=== PATIENT | female | born 1975 | race Caucasian/White ===

== ENCOUNTER → 2017-03-01 | Outpatient (CLI) | payer OTHER ==
[~2017-03-01] MED LIST: BARIUM SUSPENSION 105% (LIQUID POLIBAR PLUS) 240 ML/DOSE PO ONE; BARIUM SUSPENSION 60% (LIQUID EZ PAQUE) 240 ML DOSE PO ONE; PANT40TA2 PO; bcp PO
--- NOTE | 2017-03-01 11:09 | Diagnostic Imaging Report ---
EXAMINATION: Upper GI study, double contrast. TECHNIQUE: A csw image of the abdomen was performed. After the oral administration of gas forming granules, the patient drank thick and thin barium with visualization under fluoroscopy and spot images were taken over the esophagus, stomach, and duodenum followed by overhead images of the chest and abdomen. INDICATION: Reflux. FLUOROSCOPY TIME: 1 minute and 20 seconds. FINDINGS: [place] images of the abdomen demonstrate a moderate amount of fecal material. Surgical clips in the upper right abdomen are also seen. The esophagus demonstrates normal caliber with no strictures. The mucosal pattern demonstrates no filling defects, diverticulum, or ulceration. There is normal relaxation of the distal sphincter. There is no hiatal hernia. The stomach demonstrates normal distensibility with a normal appearance of the mucosal folds. There is a small contrast collection seen near the lesser curvature in the gastric antrum, only seen on one image. This is concerning for a small gastric ulcer. Endoscopic evaluation is recommended. The duodenal bulb and sweep appear normal. IMPRESSION: Question of a gastric ulcer or gastritis along the lesser curvature in the antrum. Endoscopic evaluation is recommended. Dr. Box was called and informed about the findings at the time of dictation. Dictated by: Dictated on workstation # [id number]
== END ==
LOC: RAD 08:58
PROVIDERS: ATTEND Surgery Pediatric Surgery
DX: K21.9 Gastro-esophageal reflux disease without esophagitis (principal)
CPT/HCPCS: 74241

== ENCOUNTER 2017-03-02 05:42 | Outpatient (CLI) | payer OTHER ==
[~2017-03-02] VITALS: Ht 162.6 cm; Wt 116.1 kg
[2017-03-02] MEDS ORDERED: bcp PO (11:47)
--- NOTE | 2017-03-05 21:56 | HISTORY AND PHYSICAL ---
DATE OF SERVICE: 03/07/2017 ATTENDING PRIMARY CARE PHYSICIAN: Dr. Dawn HISTORY OF PRESENT ILLNESS: The patient is a 41-year-old female who is in our surgical weight loss program for the laparoscopic gastric sleeve resection and does meet the medical criteria for bariatric surgery. She gained the majority of her weight in 1997 after having her second child. She has tried a number of diet and exercise attempts with no success. She also has tried pharmaceutical medications; however, due to the side effects of agitation, irrigation and palpitation, she had to discontinue the medication. Her medical comorbidities include diabetes, hypertension, lower extremity edema and gastroesophageal reflux disease. She has had worsening issues with gastroesophageal reflux disease, as well as epigastric pain, lately. She underwent a recent upper GI contrast study which did not show any hiatal hernia; however, there was a defect within the stomach that was consistent with a gastric ulcer. She has never had an EGD in the past. Upon further questioning, she does report that the epigastric crampy pain and burning sensation has worsened, especially in the past year. PAST MEDICAL HISTORY: Diabetes, hypertension, lower extremity edema, gastroesophageal reflux disease. PAST SURGERIES: Open bilateral urethropelvic junction repair, 1982; tonsillectomy and laparoscopic cholecystectomy, 2001. ALLERGIES: TETRACYCLINE, DOXYCYCLINE, ERYTHROMYCIN. MEDICATIONS: Oral contraceptive pill daily. SOCIAL HISTORY: Negative smoking, negative alcohol. FAMILY HISTORY: Father carcinoid tumor, mother diabetes, father hypertension and myocardial infarction at age 62. VITAL SIGNS: Stable, currently 256.6 pounds, 5 feet 4 inches, body mass index of 44.3. REVIEW OF SYSTEMS: This is a well-nourished female currently in no acute distress. She is not experiencing any shortness of breath or difficulty breathing, no chest pain, palpitations or diaphoresis, no nausea or vomiting with intermittent episodes of epigastric burning sensation, as well as crampy pain, as well as reflux type of symptoms, no hematemesis, no coffee-ground emesis, no diarrhea or constipation, no red blood per rectum, no dark or tarry stools, no fever or chills, no recent inadvertent weight loss. PHYSICAL EXAMINATION: CHEST: Clear. HEART: Regular. EXTREMITIES: No lower extremity edema, negative Homans' sign. HEENT: No scleral icterus. NECK: No cervical lymphadenopathy. ABDOMEN: Soft, nondistended with pain in the epigastric region on deep palpation, no peritoneal signs. ASSESSMENT AND PLAN: A 41-year-old female with a history of gastroesophageal reflux disease, as well as peptic ulcer disease. She has not had an EGD, as well as biopsy to rule out Helicobacter pylori in the past, and we will proceed with an EGD with biopsy. Job ID: [id number] DocumentID: [id number] Dictated Date: 03/05/2017 20:13:59 Refinisher Date: 03/05/2017 21:55:51 Dictated By: JANEEN ARGUELLO MD [facility]
== END 2017-03-02 11:53 ==
LOC: PREOP 05:42
PROVIDERS: ATTEND Surgery Pediatric Surgery
DX: Z01.818 Encounter for other preprocedural examination (principal); K21.9 Gastro-esophageal reflux disease without esophagitis

== ENCOUNTER 2017-03-07 10:57 | Day surgery (SDC) | payer OTHER ==
[~2017-03-07] VITALS: Ht 162.6 cm; Wt 116.1 kg
[~2017-03-07 10:57] MED LIST changes: -BARIUM SUSPENSION 105% (LIQUID POLIBAR PLUS) 240 ML/DOSE PO ONE; -BARIUM SUSPENSION 60% (LIQUID EZ PAQUE) 240 ML DOSE PO ONE; -PANT40TA2 PO
[2017-03-07] MEDS ORDERED: FLUMAZENIL (ROMAZICON) 0.1 MG/ML 5 ML VIAL INJ PRN (11:15)
[2017-03-07] MEDS ORDERED: LIDOCAINE JELLY 2% (XYLOCAINE) 5 ML TUBE MM PRN (11:15)
[2017-03-07] MEDS ORDERED: NALOXONE 0.4 MG/ML 1 ML (NARCAN) VIAL IVP PRN (11:15)
[2017-03-07] MEDS ORDERED: HURRICAINE EXT TUBE (BENZOCAINE) XX PRN (11:15)
[2017-03-07 11:25] VITALS: BP 144/86
[2017-03-07] MEDS ORDERED: NS IV 500 ML 500 ML IV PRN (11:30)
--- NOTE | 2017-03-07 11:37 | Conscious Sedation/ASA ---
Conscious Sedation Pre-Proced Time Reviewed: 11:30 ASA Class: 2 Airway Mallampati Classification: ([place] appropriate class) I. II. III, IV Lungs Heart ASA score ASA 1: a normal healthy patient ASA 2: a patient with a mild systemic disease (mid diabetes, controlled hypertension, obesity ASA 3: a patient with a severe systemic disease that limits activity (angina , COPD, prior Myocardial infarction) ASA 4: a patient with an incapacitating disease that is a constant threat to life (CHF, renal failure) ASA 5: a moribund patient not expected to survive 24 hrs. (ruptured aneurysm) ASA 6: a declared brain patient whose organs are being harvested. For emergent operations, add the letter E after the classification Grade 3 Sedation Plan: Analgesia, Amnesia, Plan communicated to team members, Discussed options with patient/fam, Discussed risks with patient/fam Note The patient is an appropriate candidate to undergo the planned procedure, sedation, and anesthesia. The patient immediately re-assessed prior to indication. JANEEN ARGUELLO MD March 07, 2017 11:36 am
--- NOTE | 2017-03-07 11:37 | Progress Note-Pre Operative ---
Pre-Operative Progress Note H&P Reviewed The H&P was reviewed, patient examined and no changes noted. Date H&P Reviewed: March 07, 2017 Time H&P Reviewed: 11:30 Pre-Operative Diagnosis: GERD. JANEEN WALLACE MD March 07, 2017 11:37 am
[2017-03-07] MEDS ORDERED: HYDROcodone/APAP 5 MG/325 MG (LORTAB) TAB PO PRN (11:45)
[2017-03-07] MEDS ORDERED: ONDANSETRON 4 MG/2 ML (SDV) Z0FRAN IV PRN (11:45)
[2017-03-07] MEDS ORDERED: ACETAMINOPHEN 325 MG TABLET/CAPLET (TYLENOL) PO PRN (11:45)
[2017-03-07] MEDS ORDERED: morphine INJ 10 MG/ML 1ML (SYR OR VIAL) IV PRN (11:45)
[2017-03-07] MEDS ORDERED: MIDAZOLAM 2 MG/2 ML (VERSED) VIAL ONE ×4 (12:01→12:02)
[2017-03-07] MEDS ORDERED: HURRICAINE EXT TUBE (BENZOCAINE) ONE (12:02)
[2017-03-07] MEDS ORDERED: fentaNYL INJECTION 100 MCG/2 ML AMP ONE (12:02)
[2017-03-07] MEDS ORDERED: LIDOCAINE JELLY 2% (XYLOCAINE) 5 ML TUBE ONE (12:02)
[2017-03-07] MEDS: fentaNYL INJECTION 100 MCG/2 ML AMP IVP PRN ×2 (12:15→12:25)
[2017-03-07] MEDS: MIDAZOLAM 2 MG/2 ML (VERSED) VIAL IVP PRN ×4 (12:18→12:35)
--- NOTE | 2017-03-07 12:52 | Progress Note-Post Operative ---
Post-Operative Progess Note Surgeon (s)/Brand Ambassador Promotional Model (s) Surgeon JANEEN ARGUELLO MD [employer] Ambassador Promotional Model: none Pre-Operative Diagnosis GERD. PUD Post-Operative Diagnosis reflux esophagitis(class B), small HH(<1cm), moderate diffuse gastritis. Procedure & Operative Findings Date of Procedure 03/07/17 Procedure Preformed/Findings EGD with bx. Anesthesia Type CS Estimated Blood Loss Estimated blood loss (mL): minimal Specimens/Packing Specimens Removed GE jxn, antrum Packing: none JANEEN ARGUELLO MD March 07, 2017 12:52
[2017-03-07] MEDS ORDERED: PANT40TA2 PO (12:53)
--- NOTE | 2017-03-07 12:53 | Discharge Inst-Surgical ---
D/C Lap Instructions-KIDO New, Converted, or Re-Newed RX: RX on Chart Follow Up PRN Activity as tolerated High Fiber Diet 25g or more per day Avoid Alcohol, Caffeine, Spicy [place] and Acid foods. Drink 64 fluid oz or more of fluids per day. Symptoms to Report: Fever over 101 degree F, Nausea/Vomiting If any problems/questions: Contact your physician or go to Emergency Room JANEEN ARGUELLO MD March 07, 2017 12:53
[2017-03-07 13:00] VITALS: BP 136/82
--- NOTE | 2017-03-07 13:17 | OPERATIVE REPORT ---
DATE OF SERVICE: 03/07/2017 PRIMARY CARE PHYSICIAN: Dr. Dalton Dawn. PREOPERATIVE DIAGNOSIS: Peptic ulcer disease and gastroesophageal reflux disease. POSTOPERATIVE DIAGNOSES: 1. Reflux esophagitis class B. 2. Small hiatal hernia, less than 1 cm in size with moderate severity gastritis. 3. There were no formal ulcers, polyps, or any neoplasms. PROCEDURE: Esophagogastroduodenoscopy with biopsy. SURGEON: Dr. Arguello. ANESTHESIA: Conscious sedation. ESTIMATED BLOOD LOSS: Minimal. FINDINGS: Reflux esophagitis class B, small hiatal hernia, less than 1 cm in size. There was a moderate severity gastritis which was diffuse. There were no formal ulcers identified within the stomach or duodenum. There were no distal obstructions. DISPOSITION: The patient tolerated the procedure well. INDICATIONS: The patient is a 41-year-old female who is in our surgical weight loss program for the laparoscopic gastric sleeve resection and meets the medical criteria for bariatric surgery. She gained the majority of her adult weight in 1997 after having her second child. She has tried a number of diet and exercise attempts with no success. She has tried pharmaceutical medications as well; however, due to the side effects of agitation, irritation and palpitations she discontinued the medication. Her medical comorbidities related to her obesity include hypertension, lower extremity edema and gastroesophageal reflux disease. She had worsening issues with epigastric burning sensation as well as crampy pain. She did undergo an upper GI contrast study, which did not show a hiatal hernia; however, there was a filling defect within the stomach consistent with a gastric ulcer. She has not had an EGD done in the past. DESCRIPTION OF PROCEDURE: The patient was brought to the endoscopy suite, laid in the left lateral decubitus position with the head slightly elevated. After adequate IV pain and sedating medications and conscious sedation anesthesia, the mouthpiece was applied. The endoscope was then placed into the mouth visualizing the pharynx and hypopharyngeal region. The vocal cords, epiglottis and vallecula identified and appeared to be normal. The endoscope was then gently intubated into the esophageal opening and esophagus insufflated. The endoscope was then advanced through the first, second and third portions of the esophagus. At the level of the GE junction, a reflux esophagitis class B identified. There were no ulcers or strictures identified in this region. A biopsy was taken with forceps with visualization of good hemostasis. The endoscope was then easily advanced into the stomach and then endoscope retroflexed, visualizing a very small hiatal hernia, less than 1 cm in size. There was a moderate severity gastritis which was diffuse throughout the stomach and antrum. There were no formal ulcers, polyps, or any neoplasms identified. A biopsy was taken of the stomach antrum with visualization of good hemostasis. The endoscope was then advanced to the pylorus and the first and second portions of the duodenum, which appeared normal with no distal obstructions or any ulcerations. The endoscope was then slowly withdrawn taking a second look and suctioning of residual air with no additional findings. The patient tolerated the procedure well. We will await the biopsy results for potential H. pylori; however, we will also start her on Protonix 40 mg daily. We will also recommend the necessary lifestyle and diet accommodation including small and more frequent meals, avoidance of eating at night as well as head elevation while laying supine. She also needs to avoid caffeinated beverages, spicy, greasy and acidic foods. Job ID: [id number] DocumentID: [id number] Dictated Date: 03/07/2017 12:50:24 Manager Medicare Date: 03/07/2017 13:16:50 Dictated By: JANEEN ARGUELLO MD
[2017-03-07 13:30] VITALS: BP 138/76
[2017-03-07 13:43] VITALS: BP 138/76
--- NOTE | 2017-03-13 08:14 | HISTORY AND PHYSICAL ---
DATE OF SERVICE: 03/07/2017 ATTENDING PRIMARY CARE PHYSICIAN: Dr. Dawn HISTORY OF PRESENT ILLNESS: The patient is a 41-year-old female who is in our surgical weight loss program for the laparoscopic gastric sleeve resection and does meet the medical criteria for bariatric surgery. She gained the majority of her weight in 1997 after having her second child. She has tried a number of diet and exercise attempts with no success. She also has tried pharmaceutical medications; however, due to the side effects of agitation, irrigation and palpitation, she had to discontinue the medication. Her medical comorbidities include diabetes, hypertension, lower extremity edema and gastroesophageal reflux disease. She has had worsening issues with gastroesophageal reflux disease, as well as epigastric pain, lately. She underwent a recent upper GI contrast study which did not show any hiatal hernia; however, there was a defect within the stomach that was consistent with a gastric ulcer. She has never had an EGD in the past. Upon further questioning, she does report that the epigastric crampy pain and burning sensation has worsened, especially in the past year. PAST MEDICAL HISTORY: Diabetes, hypertension, lower extremity edema, gastroesophageal reflux disease. PAST SURGERIES: Open bilateral urethropelvic junction repair, 1982; tonsillectomy and laparoscopic cholecystectomy, 2001. ALLERGIES: TETRACYCLINE, DOXYCYCLINE, ERYTHROMYCIN. MEDICATIONS: Oral contraceptive pill daily. SOCIAL HISTORY: Negative smoking, negative alcohol. FAMILY HISTORY: Father carcinoid tumor, mother diabetes, father hypertension and myocardial infarction at age 62. VITAL SIGNS: Stable, currently 256.6 pounds, 5 feet 4 inches, body mass index of 44.3. REVIEW OF SYSTEMS: This is a well-nourished female currently in no acute distress. She is not experiencing any shortness of breath or difficulty breathing, no chest pain, palpitations or diaphoresis, no nausea or vomiting with intermittent episodes of epigastric burning sensation, as well as crampy pain, as well as reflux type of symptoms, no hematemesis, no coffee-ground emesis, no diarrhea or constipation, no red blood per rectum, no dark or tarry stools, no fever or chills, no recent inadvertent weight loss. PHYSICAL EXAMINATION: CHEST: Clear. HEART: Regular. EXTREMITIES: No lower extremity edema, negative Homans' sign. HEENT: No scleral icterus. NECK: No cervical lymphadenopathy. ABDOMEN: Soft, nondistended with pain in the epigastric region on deep palpation, no peritoneal signs. ASSESSMENT AND PLAN: A 41-year-old female with a history of gastroesophageal reflux disease, as well as peptic ulcer disease. She has not had an EGD, as well as biopsy to rule out Helicobacter pylori in the past, and we will proceed with an EGD with biopsy. Job ID: [id number] DocumentID: [id number] Dictated Date: 03/05/2017 20:13:59 [employer] Date: 03/05/2017 21:55:51 Dictated By: JANEEN ARGUELLO MD <Dictated by JANEEN ARGUELLO MD> <Electronically signed by JANEEN ARGUELLO MD> 03/06/17 1222
== END 2017-03-07 13:35 | disposition home or self-care (01) ==
LOC: ENDO 10:57
PROVIDERS: ATTEND Surgery Pediatric Surgery
DX: K21.0 Gastro-esophageal reflux disease with esophagitis (principal); K44.9 Diaphragmatic hernia without obstruction or gangrene; E11.9 Type 2 diabetes mellitus without complications; I10 Essential (primary) hypertension; Z79.899 Other long term (current) drug therapy